=== PATIENT | male | born 1980 | race Caucasian/White ===

== ENCOUNTER 2017-06-09 14:29 | Emergency (ER) | payer SELFPAY ==
[~2017-06-09] VITALS: Ht 182.9 cm; Wt 91.0 kg
[~2017-06-09 14:29] MED LIST: EC-N500T7 PO; IBUP1TAB7 PO; MS C30TA5 PO; PENI500T PO; PERC10TA27 PO; TRAM50 PO
[2017-06-09 14:35] VITALS: O2SAT 98
[2017-06-09 14:37] VITALS: BP 141/87; PULSE 79; RESP 20; TEMP 97.7; O2SAT 98
--- NOTE | 2017-06-09 14:41 | PD ---
HPI Chief Complaint: Nausea and vomiting Time Seen by Provider: 14:34 Travel History International Travel<30 days: No Contact w/Intl Traveler<30days: No History of Present Illness HPI 37-year-old male with history of chronic back pain currently on MS Contin, opiate pain medications, presents to the ER today brought in by EMS an hour after he states that he had accidentally taken naltrexone. He states that he had picked up a yellow pill from the floor that had a #50 on it, and started to get nauseous, vomiting, abdominal pains, getting chills. He states that he was trying to get a cigarette in his mouth, flipped the cover over and the pill fell out and fell onto his mouth. He states he looked it up and figured out it was probably naloxone or naltrexone. Modifying Factors: None Associated Signs & Symptoms: Accidentally took naloxone, having nausea and vomiting Risk Factors: Nausea, vomiting, abdominal pains, chills PFSH Past Medical History Hx Anticoagulant Therapy: No Cardiovascular Problems: No Chemotherapy: No Cerebrovascular Accident: No Diabetes: No Diminished Hearing: No Herniated Disk: Yes (L5-S1) Respiratory: No Past Surgical History Hysterectomy: No Tonsillectomy: Yes Social History Alcohol Use: No Tobacco Use: Yes (1/2 PPD) Substance Use: No Allergies-Medications (Allergen,Severity, Reaction): Coded Allergies: No Known Allergies (Verified Adverse Reaction, Unknown, 06/09/17) Reported Meds & Prescriptions Reported Meds & Active Scripts Active Reported Oxycodone (Oxycodone HCl) 10 Mg Tab 10 Mg PO DAILY Ms Contin (Morphine Sulfate) 15 Mg Tab 30 Mg PO DAILY Review of Systems Except as stated in HPI: all other systems reviewed are Neg Physical Exam Narrative GENERAL: Well-developed middle-age male patient currently and no acute distress. Awake and oriented 3. SKIN: Focused skin assessment warm/dry. Piloerection notable. HEAD: Atraumatic. Normocephalic. EYES: Pupils equal and round. No scleral icterus. No injection or drainage. ENT: No nasal bleeding or discharge. Mucous membranes pink and moist. NECK: Trachea midline. No JVD. Supple. CARDIOVASCULAR: Regular rate and rhythm. No murmur appreciated. RESPIRATORY: No accessory muscle use. Clear to auscultation. Breath sounds equal bilaterally. GASTROINTESTINAL: Abdomen soft, non-tender, nondistended. Hepatic and splenic margins not palpable. MUSCULOSKELETAL: No obvious deformities. No clubbing. No cyanosis. No edema. NEUROLOGICAL: Awake and alert. No obvious cranial nerve deficits. Motor grossly within normal limits. Normal speech. PSYCHIATRIC: Appropriate mood and affect; insight and judgment normal. Data Data Last Documented VS Vital Signs Date Time Temp Pulse Resp B/P (MAP) Pulse Ox O2 Delivery O2 Flow Rate FiO2 06/09/17 14:37 97.7 79 20 141/87 (105) 98 06/09/17 14:35 Room Air Orders Orders Complete Blood Count With Diff (06/09/17 14:34) Comprehensive Metabolic Panel (06/09/17 14:34) Lipase (06/09/17 14:34) Iv Access Insert/Monitor (06/09/17 14:34) Ecg Monitoring (06/09/17 14:34) Oximetry (06/09/17 14:34) Ondansetron Inj (Zofran Inj) (06/09/17 14:45) Sodium Chloride 0.9% Flush (Ns Flush) (06/09/17 14:45) Drug Screen, Random Urine (06/09/17 14:34) Ed Discharge Order (06/09/17 15:41) Labs Laboratory Tests Test 06/09/17 14:35 White Blood Count 8.7 TH/MM3 Red Blood Count 5.54 MIL/MM3 Hemoglobin 16.3 GM/DL Hematocrit 46.9 % Mean Corpuscular Volume 84.7 FL Mean Corpuscular Hemoglobin 29.4 PG Mean Corpuscular Hemoglobin Concent 34.7 % Red Cell Distribution Width 13.5 % Platelet Count 272 TH/MM3 Mean Platelet Volume 8.6 FL Neutrophils (%) (Auto) 60.6 % Lymphocytes (%) (Auto) 27.0 % Monocytes (%) (Auto) 8.7 % Eosinophils (%) (Auto) 3.1 % Basophils (%) (Auto) 0.6 % Neutrophils # (Auto) 5.1 TH/MM3 Lymphocytes # (Auto) 2.4 TH/MM3 Monocytes # (Auto) 0.8 TH/MM3 Eosinophils # (Auto) 0.3 TH/MM3 Basophils # (Auto) 0.1 TH/MM3 CBC Comment DIFF FINAL Differential Comment Blood Urea Nitrogen 15 MG/DL Creatinine 1.20 MG/DL Random Glucose 94 MG/DL Total Protein 8.1 GM/DL Albumin 4.1 GM/DL Calcium Level 9.1 MG/DL Alkaline Phosphatase 89 U/L Aspartate Amino Transf (AST/SGOT) 27 U/L Alanine Aminotransferase (ALT/SGPT) 19 U/L Total Bilirubin 0.3 MG/DL Sodium Level 137 MEQ/L Potassium Level 3.3 MEQ/L Chloride Level 101 MEQ/L Carbon Dioxide Level 26.9 MEQ/L Anion Gap 9 MEQ/L Estimat Glomerular Filtration Rate 68 ML/MIN Lipase 141 U/L Urine Opiates Screen POS Urine Barbiturates Screen NEG Urine Amphetamines Screen NEG Urine Benzodiazepines Screen NEG Urine Cocaine Screen POS Urine Cannabinoids Screen POS MDM Medical Decision Making Medical Screen Exam Complete: Yes Emergency Medical Condition: Yes Medical Record Reviewed: Yes Interpretation(s) Laboratory Tests Test 06/09/17 14:35 Monocytes (%) (Auto) 8.7 % (0.0-8.0) Potassium Level 3.3 MEQ/L (3.5-5.1) Estimat Glomerular Filtration Rate 68 ML/MIN (>89) Urine Opiates Screen POS (NEG) Urine Cocaine Screen POS (NEG) Urine Cannabinoids Screen POS (NEG) Differential Diagnosis Nausea, vomiting, chills, abdominal pains: Opiate withdrawals versus medication side effect Narrative Course Patient has several positive urine tox substances. He was given IV Zofran, did not have any further vomiting episodes in the ER. Vital signs are stable. He was observed in the ER and his symptoms settle down. I have confirmed that it is likely that the medication he took was naltrexone according to description my plan at this point would be to release the patient with follow-up and effects. As necessary to primary care doctor. Return for worsening symptoms as necessary. The plan was discussed with him and he states understanding. Diagnosis Primary Impression: Medication side effect Additional Impression: Opiate withdrawal Med/Other Pt SpecificInfo: Prescription(s) given Scripts Ondansetron Odt (Zofran Odt) 4 Mg Tab 4 MG SL Q6HR Y for Nausea/Vomiting, #5 TAB 0 Refills Prov: La Daugherty MD 06/09/17 Disposition: 01 DISCHARGE HOME Condition: Stable La Daugherty MD Jun 09, 2017 14:41
[2017-06-09] MEDS ORDERED: ONDANSETRON HCL 4 MG/2 ML VIAL IVP ONE (14:45)
[2017-06-09] MEDS ORDERED: SODIUM CHLORIDE 0.9% FLUSH 10 ML FLUSH IV FLUSH PRN (14:45)
[2017-06-09 15:05] LABS: AUTOMATED NEUTROPHIL # 5.1 TH/MM3 (1.8-7.7); BASOPHIL # 0.1 TH/MM3 (0-0.2); BASOPHIL % 0.6 % (0.0-2.0); EOSINOPHIL # 0.3 TH/MM3 (0-0.4); EOSINOPHIL % 3.1 % (0.0-4.0); HEMATOCRIT 46.9 % (39.0-51.0); HEMOGLOBIN 16.3 GM/DL (13.0-17.0); LYMPHOCYTE # 2.4 TH/MM3 (1.0-4.8); MEAN CELL VOLUME 84.7 FL (80.0-100.0); MEAN CORPUSCULAR HEMOGLOBIN 29.4 PG (27.0-34.0); MEAN CORPUSCULAR HGB CONC 34.7 % (32.0-36.0); MEAN PLATELET VOLUME 8.6 FL (7.0-11.0); MONO % 8.7 % (0.0-8.0); MONOCYTE # 0.8 TH/MM3 (0-0.9); NEUT % 60.6 % (16.0-70.0); PLATELET COUNT 272 TH/MM3 (150-450); RED BLOOD COUNT 5.54 MIL/MM3 (4.50-5.90); RED CELL DISTRIBUTION WIDTH 13.5 % (11.6-17.2); WHITE BLOOD COUNT 8.7 TH/MM3 (4.0-11.0)
[2017-06-09] MEDS ORDERED: MS C15TA7 PO (15:08)
[2017-06-09] MEDS ORDERED: OXYC-395 PO (15:08)
[2017-06-09 15:16] LABS: CHLORIDE 101 MEQ/L (98-107); SODIUM (NA) 137 MEQ/L (136-145)
[2017-06-09 15:19] LABS: CALCIUM 9.1 MG/DL (8.5-10.1)
[2017-06-09 15:20] LABS: ALBUMIN 4.1 GM/DL (3.4-5.0); BICARBONATE 26.9 MEQ/L (21.0-32.0); BLOOD UREA NITROGEN 15 MG/DL (7-18); GLUCOSE,RANDOM 94 MG/DL (74-106)
[2017-06-09 15:22] LABS: ALT (GPT) 19 U/L (12-78)
[2017-06-09 15:23] LABS: AST (GOT) 27 U/L (15-37); GLOMERULAR FILTRATION RATE 68 ML/MIN (>89)
[2017-06-09 15:24] LABS: TOTAL BILIRUBIN ADULT 0.3 MG/DL (0.2-1.0); TOTAL PROTEIN 8.1 GM/DL (6.4-8.2)
[2017-06-09 15:25] LABS: ALKALINE PHOSPHATASE 89 U/L (45-117)
[2017-06-09] MEDS ORDERED: ZOFR4TAB3 SL (15:45)
[2017-06-09 15:56] VITALS: BP 144/76
== END 2017-06-09 15:58 | disposition home or self-care (01) ==
LOC: PHED 14:29
DX: T50.7X1A Poisoning by analeptics and opioid receptor antagonists, accidental (unintentional), initial encounter (principal); F19.939 Other psychoactive substance use, unspecified with withdrawal, unspecified; G89.29 Other chronic pain; M54.9 Dorsalgia, unspecified; F17.200 Nicotine dependence, unspecified, uncomplicated
CPT/HCPCS: 80053; 80307; 83690; 85025; 96374; 99284; J2405